=== PATIENT | female | born 2005 | race Caucasian/White ===

== ENCOUNTER 2024-05-15 17:18 | Emergency (ER) | payer OTHER ==
[~2024-05-15] VITALS: Ht 160 cm; Wt 45.4 kg
[2024-05-15 18:17] LABS: Albumin, Blood 4.7 g/dL (3.4-5.0); Albumin/Globulin Ratio 1.4 (0.8-1.8); BASOPHILS PERCENT AUTO 1 % (0-2); Bilirubin, Total 0.4 mg/dL (0.1-1.0); Bun/Creatinine Ratio 5.6 (12.0-20.0); Calcium, Blood 9.2 mg/dL (8.5-10.1); Creatinine, Blood 0.71 mg/dL (0.40-1.00); EOSINOPHILS ABSOLUTE AUTO 0.03 K/mm3 (0.00-0.68); EOSINOPHILS PERCENT AUTO 0 % (0-6); Globulin, Blood 3.4 g/dL (2.2-4.0); Hematocrit 39.8 % (33.0-51.0); Hemoglobin 13.7 g/dL (11.5-16.0); IMMATURE GRAN ABSOLUTE AUTO 0.03 K/mm3 (0.00-0.10); IMMATURE GRAN PERCENT AUTO 0 % (0-1); LYMPHOCYTES ABSOLUTE AUTO 2.09 K/mm3 (0.84-5.20); LYMPHOCYTES PERCENT AUTO 29 % (21-46); MONOCYTES ABSOLUTE AUTO 0.33 K/mm3 (0.16-1.47); MONOCYTES PERCENT AUTO 5 % (4-13); Mean Corpuscular HGB 28.7 pg (26.0-34.0); Mean Corpuscular HGB Conc 34.4 g/dL (31.5-36.5); Mean Corpuscular Volume 83 fL (80-100); NEUTROPHILS PERCENT AUTO 65 % (41-73); Potassium, Blood 3.2 mmol/L (3.5-5.5); RDW Coefficient Variation 12.7 % (11.7-14.2); RDW Standard Deviation 38.3 fL (35.1-46.3); Red Blood Cell Count 4.77 M/mm3 (3.80-5.20); Total Protein, Blood 8.1 g/dL (6.4-8.2); White Blood Cell Count 7.28 K/mm3 (4.00-11.30)
[2024-05-15 18:37] LABS: Mean Platelet Volume 10.5 fL (9.1-12.4); Platelet Count 219 K/mm3 (150-400)
== END 2024-05-15 18:14 | disposition left against medical advice (07) ==
LOC: EDBD 17:18 → ER 17:18
PROVIDERS: Student in an Organized Health Care Education/Training Program
DX: R41.82 Altered mental status, unspecified (principal); Z53.29 Procedure and treatment not carried out because of patient's decision for other reasons
CPT/HCPCS: 80053; 85025; 99282